=== PATIENT | female | born 1995 | race African-American/Black ===

== ENCOUNTER 2016-08-12 01:12 | Emergency (ER) | payer MEDICARE ==
[~2016-08-12] VITALS: Ht 162.6 cm; Wt 44.5 kg
[2016-08-12] MEDS ORDERED: DIPHENOXYLATE HCL/ATROP SULF TABLET PO ONE (01:45)
[2016-08-12] MEDS ORDERED: DICYCLOMINE HCL 10 MG/5 ML UDC LIQ PO ONE (01:45)
--- NOTE | 2016-08-12 02:05 | NUR ---
mse completed, meds administered, pt d/c'd home aci/rx x 2. pt ambulated w/o diff/took all belongings.
[2016-08-12 02:07] VITALS: BP 101/62
[2016-08-12] MEDS ORDERED: DICYCLOMINE HCL 10 MG/5 ML UDC LIQ ONE (02:08)
[2016-08-12] MEDS ORDERED: DIPHENOXYLATE HCL/ATROP SULF TABLET ONE (02:08)
== END 2016-08-12 02:07 | disposition home or self-care (01) ==
LOC: ER 01:15
DX: R19.7 Diarrhea, unspecified (principal); R10.84 Generalized abdominal pain
CPT/HCPCS: 99283; A4663